=== PATIENT | female | born 1975 | race Hispanic/Latino ===

== ENCOUNTER 2018-05-06 14:51 | Inpatient (IN) | payer BC ==
[2018-05-06] MEDS ORDERED: ceFAZolin IV 1 gm in Dextrose 2 GM/100 ML BAG IVPB ONE (15:02)
[2018-05-06] MEDS ORDERED: Bupivacaine HCl 0.5% PF (30 ml) Inj ONE (15:02)
[2018-05-06] MEDS ORDERED: Midazolam 2 MG/2 ML VIAL ONE (15:05)
[2018-05-06] MEDS ORDERED: Etomidate 20 mg/10ml Inj IV ONE (15:08)
[2018-05-06] MEDS ORDERED: Phenylephrine 10 mg/ml Inj ONE (15:08)
[2018-05-06] MEDS ORDERED: ePHEDrine 50 mg/ml Inj ONE (15:08)
[2018-05-06] MEDS ORDERED: Succinylcholine Chloride 20 mg/ml Syr (5 ml) IV ONE (15:08)
[2018-05-06] MEDS ORDERED: Rocuronium 10 mg/ml (5 ml) ONE ×3 (15:09→17:16)
[2018-05-06] MEDS ORDERED: Lidocaine 4% (Laryng-O-Jet) Kit MM ONE (15:16)
[2018-05-06] MEDS ORDERED: Bupivacaine 0.25% 20 ML INJ IJ ONE (17:05)
[2018-05-06] MEDS ORDERED: Neostigmine Methylsulfate 3mg/3ml Syringe IV ONE (19:22)
[2018-05-06 20:22] VITALS: BMI 29.7
[2018-05-06] MEDS ORDERED: DiphenhydrAMINE 50 mg/ml Inj IVP PRN (20:29)
[2018-05-06] MEDS ORDERED: DiphenhydrAMINE 50 mg/ml Inj ONE (20:40)
[2018-05-06] MEDS: Lactated Ringer's 1,000 ML IV SCH (22:00)
[2018-05-07] MEDS: Lactated Ringer's 1,000 ML IV SCH (06:22)
--- NOTE | 2018-05-07 11:27 | PCM.SURG1 ---
Surgeon's Initial Post Op Note - Surgeon's Notes Surgeon: prabhakar ortiz raccuia Supervisor [employer]: susi Type of Anesthesia: General Endo Anesthesia Administered By: donavon Pre-Operative Diagnosis: acute abdomino pelvic pain rule out hernia Operative Findings: bilateral hernias , pelvic adhesions , adenomyosis endometriosis, Post-Operative Diagnosis: incarcerated inguinal hernia Operation Performed: bilateral hernia repair, lysis of adhesions, enterolysis, left ureterolysis, adenomyomectomy , appendectomy Specimen/Specimens Removed: multiple sent to pathology Estimated Blood Loss: EBL {In ML}: 10 Drains Used: No Drains Post-Op Condition: Good Date of Surgery/Procedure: 05/06/18 Time of Surgery/Procedure: 17:00
--- NOTE | 2018-05-07 11:46 | CP.PCM.HP ---
History of Present Illness - History of Present Illness History of Present Illness: 43 yo presents to the er with acute abdominal pain nausea and vomiting x24 hours . the patient has a long history of prior surgeries x5 and multiple evaluations wit imaging.Abdominal pain is acute both lowe abdomen and umbelical and periumbilical radiating to legs and flank Present on Admission - Present on Admission Any Indicators Present on Admission: No Review of Systems - Gastrointestinal Gastrointestinal: Abdominal Pain, Bloating, Nausea, Vomiting - Reproductive: Female Reproductive:Female: Dysmenorrhea Past Patient History - Infectious Disease Hx of Infectious Diseases: None - Tetanus Immunizations Tetanus Immunization: Unknown - Past Medical History & Family History Past Medical History?: No - Past Social History Smoking Status: Never Smoked - ENDOCRINE/METABOLIC Other/Comment: Hashimotos - GENITOURINARY/GYNECOLOGICAL Hx Reproductive Disorders: Yes (endometriosis) Other/Comment: PCOS,endometriosis - PSYCHIATRIC Hx Emotional Abuse: No Hx Physical Abuse: No Hx Substance Use: No - SURGICAL HISTORY Hx Tubal Ligation: Yes (left ovary) Other/Comment: multiple laparoscopies for endometriosis Meds Allergies/Adverse Reactions: Allergies Allergy/AdvReac Type Severity Reaction Status Date / Time gluten Allergy VOMITING Verified 05/06/18 10:16 lactase [From Dairy Aid] Allergy VOMITING Verified 05/06/18 10:16 shellfish derived Allergy ANAPHYLAXIS Verified 05/06/18 10:16 soy Allergy VOMITING Verified 05/06/18 10:16 paper tape Allergy URTICARIA Uncoded 05/06/18 10:16 Physical Exam - GI/Abdominal Exam GI & Abdominal Exam: Distended, Firm, Guarding, Rebound, Tenderness - Exam Bimanual exam: Uterine Tenderness Results - Vital Signs Recent Vital Signs: Last Vital Signs Temp 97.3 F L 05/07/18 07:39 Pulse 86 05/07/18 07:39 Resp 18 05/07/18 07:39 BP 105/68 05/07/18 07:39 Pulse Ox 96 05/07/18 07:39 Assessment & Plan - Assessment and Plan (Free Text) Assessment: acute abdominal pain , hx of hernia rule out incarcerated hernia , Plan: emergency diagnostic laparoscopy - Date & Time Date: 05/06/18 Time: 13:00
--- NOTE | 2018-05-07 11:55 | CP.PCM.PN ---
Subjective - Date & Time of Evaluation Date of Evaluation: 05/07/18 Time of Evaluation: 11:51 - Subjective Subjective: patient still in pain post op extensive surgery yesterday pt difficulty getting out of bed and ambulate Objective - Vital Signs/Intake and Output Vital Signs (last 24 hours): Temp Pulse Resp BP Pulse Ox 97.3 F L 86 18 105/68 96 05/07/18 07:39 05/07/18 07:39 05/07/18 07:39 05/07/18 07:39 05/07/18 07:39 Intake and Output: 05/07/18 05/07/18 06:59 18:59 Intake Total 1370 Output Total 1100 Balance 270 - Medications Medications: Current Medications Acetaminophen (Tylenol 325mg Tab) 650 mg PO Q6 PRN PRN Reason: Pain, Mild (1-3) Diphenhydramine HCl (Benadryl) 25 mg IVP Q6 PRN PRN Reason: Itching / Pruritus Stop: 05/07/18 23:59 Docusate Sodium (Colace) 100 mg PO TID [facility] Lactated Ringer's (Lactated Ringer's) 1,000 mls @ 125 mls/hr IV .[facility]H [facility] Last Admin: 05/07/18 06:22 Dose: 125 mls/hr Ketorolac Tromethamine (Toradol) 30 mg IVP Q6 [facility] Last Admin: 05/07/18 11:49 Dose: 30 mg Oxycodone/Acetaminophen (Percocet 5/325 Mg Tab) 2 tab PO Q4H PRN PRN Reason: Pain, severe (8-10) Stop: 05/10/18 11:36 - GI/Abdominal Exam GI & Abdominal Exam: Distended, Hypoactive Bowel Sounds Assessment and Plan - Assessment and Plan (Free Text) Assessment: pod day 1 still problems with pain control Plan: discharge in am
[2018-05-07] MEDS: DiphenhydrAMINE 50 mg/ml Inj IVP PRN ×2 (15:57→22:50)
[2018-05-07] MEDS: Oxycodone/Acetaminophen 5/325 mg Tab PO PRN ×3 (15:57→22:49)
[2018-05-08] MEDS: DiphenhydrAMINE 50 mg/ml Inj IVP PRN ×2 (03:23→23:25)
[2018-05-08] MEDS: Oxycodone/Acetaminophen 5/325 mg Tab PO PRN ×3 (09:38→17:46)
[2018-05-08] MEDS: Enoxaparin 30 mg Syringe SC SCH (18:36)
--- NOTE | 2018-05-08 19:13 | CP.PCM.PN ---
Subjective - Date & Time of Evaluation Date of Evaluation: 05/08/18 Time of Evaluation: 12:00 - Subjective Subjective: PATIENT STILL WITH DIFFICULTY AMBULATING . HAVING SOME DIFFICULTIES BREATHING ON A FEW OCCASIONS WITH LOW SATURATIONS Objective - Vital Signs/Intake and Output Vital Signs (last 24 hours): Temp Pulse Resp BP Pulse Ox 97.5 F L 90 20 132/88 97 05/08/18 16:00 05/08/18 16:00 05/08/18 16:00 05/08/18 16:00 05/08/18 16:00 - Medications Medications: Current Medications Acetaminophen (Tylenol 325mg Tab) 650 mg PO Q6H [facility] Last Admin: 05/08/18 15:00 Dose: Not Given Diphenhydramine HCl (Benadryl) 25 mg IVP Q6 PRN PRN Reason: Itching / Pruritus Last Admin: 05/08/18 03:23 Dose: 25 mg Docusate Sodium (Colace) 100 mg PO TID [facility] Last Admin: 05/08/18 18:15 Dose: 100 mg Enoxaparin Sodium (Lovenox) 30 mg SC DAILY [facility] Last Admin: 05/08/18 18:36 Dose: 30 mg Ketorolac Tromethamine (Toradol) 30 mg IVP Q6 [facility] Last Admin: 05/08/18 18:14 Dose: 30 mg Oxycodone/Acetaminophen (Percocet 5/325 Mg Tab) 2 tab PO Q4H PRN PRN Reason: Pain, severe (8-10) Stop: 05/10/18 11:36 Last Admin: 05/08/18 17:46 Dose: 1 tab Assessment and Plan - Assessment and Plan (Free Text) Assessment: STILL RECOVERING BREATHING PROBLEMS LOW SATURATIONS Plan: CONTINUE FOLLOWING FOR OBSERVATION IF OK HOME IN AM
[2018-05-09] MEDS: Oxycodone/Acetaminophen 5/325 mg Tab PO PRN ×2 (03:15→08:02)
[2018-05-09 08:10] VITALS: BP 108/66; PULSE 74; RESP 18; TEMP 97.1; O2SAT 97
[2018-05-09] MEDS: Enoxaparin 30 mg Syringe SC SCH (10:19)
--- NOTE | 2018-05-31 18:10 | DS ---
Copied To: Jonnathan Leigh MD Attending MD: Jonnathan Leigh MD HOSPITAL COURSE: The patient is a 43-year-old female who was urgently admitted for emergency surgery on 05/06/2018. She underwent extensive surgery for incarcerated hernia repair as well as pelvic adhesions and endometriosis. Postoperatively, she was admitted to the floor. She experienced severe issues with pain control as well as nausea and difficulty ambulating and difficulty eating. On postop day #1, the symptoms were still persistent. Patient had difficulty getting out of bed and also respiratory issues. The hospital course was characterized by a slow advancement of diet and resumption of bowel sounds. She was able to ambulate with nursing clerk, but with some difficulty and also difficulty urination. On postop day 3, finally the patient was able to eat properly and void properly and pain control was much better and she was discharged on 05/09/2018 with instruction to follow up with Dr. Leigh in two weeks and Dr. Bowman in two weeks as well and she was given tramadol for pain. Jonnathan Leigh MD [facility]
--- NOTE | 2018-06-01 07:01 | OP ---
Copied To: Jonnathan Leigh MD Attending MD: Jonnathan Leigh MD PROCEDURE DATE: 05/06/2018 SURGEON: Jonnathan Leigh MD CLIP ON SUNGLASSES ASSEMBLER: Clive Vazquez MD from General Surgery. PREOPERATIVE DIAGNOSES: Abdominal pain, pelvic pain, rule out incarcerated hernia. POSTOPERATIVE DIAGNOSES: Incarcerated inguinal hernia, severe pelvic adhesions, pelvic endometriosis and adenomyosis. PROCEDURES PERFORMED: Emergency laparoscopy followed by repair of inguinal hernia, which was separately performed by Dr. Bowman who will dictate the procedure separately. Operative robotic da Wojciech laparoscopy, extensive lysis of adhesions, excision of pelvic endometriosis, bilateral ureterolysis, adenomyomectomy, cystoscopy with bilateral urethral catheterization, and injection of dye. COMPLICATIONS: None. ESTIMATED BLOOD LOSS: Minimal. ANESTHESIA: General endotracheal. SAMPLES: Multiple samples sent to Pathology. INDICATIONS FOR THE PROCEDURE: The patient is a 43-year-old with a long history of pelvic pain with bouts of acute pain in multiple occasions and multiple prior emergency room visits. The patient was on multiple medications for pain. She presented to the emergency room on 05/06/2018 at [facility] with severe abdominal pain, getting worse. An exam by both myself and General Surgery revealed potential presence of an inguinal hernia as well as an acute abdomen. Because of the OR was closed at [place], she was urgently transferred to [facility] for emergency surgery. Prior to the surgery, the patient signed the consent and was taken to the OR. DESCRIPTION OF THE PROCEDURE: After adequate anesthesia was obtained, the diagnostic laparoscopy was performed by Dr. Bowman who identified immediately the presence of the hernia and proceeded with the repair. He will dictate that part separately. At this point, after his procedure was done, the pelvis appeared to have very significant adhesions. The da Wojciech robot was docked after placing the ports under direct visualization, and the procedure was started. Multiple adhesions were taken down. The left ovary was surgically absent, both ureters appeared to be slightly dilated, therefore a cystoscopy was performed and IC green dye was injected in both ureters under direct visualization after placing a stent. At this point, the ureters were visualized, the left ureter was dissected off, it was encased into endometriosis, which was excised and sent to Pathology and ureterolysis was done on the left hand side. The uterus was encased with adhesions and invasive endometriosis, an incision was made in the uterus and black cystic adenomyosis was excised and the defect was then repaired utilizing an interlocking suture of 2-0 V-Loc. Attention was on the right hand side where after dissecting away from the pelvic side wall, the right ureter was identified, dissected off and the large area of endometriosis was excised. There was also endometriosis on the rectum. At this point, we checked for hemostasis, it appeared to be excellent. Dr. Vazquez from General Surgery proceeded with an appendectomy as the appendix did not appear to be normal. At this point, it was checked for hemostasis, appeared to be excellent. The instruments were removed and an additional umbilical hernia was also repaired by General Surgery who will dictate that separately. At the end of the procedure, all tapes and instrument counts were correct. The patient tolerated the procedure well, was taken to the recovery room in excellent condition. Jonnathan Leigh MD [facility]
== END 2018-05-09 12:08 | disposition home or self-care (01) | DRG 742 ==
LOC: C.OPSURG 14:51 → C.4M 20:47
PROVIDERS: ADMIT Obstetrics & Gynecology Reproductive Endocrinology; ATTEND Obstetrics & Gynecology Reproductive Endocrinology
PROC: 0YUA4JZ Supplement Bilateral Inguinal Region with Synthetic Substitute, Percutaneous Endoscopic Approach (ICD-10-PCS; 2018-05-06)
PROC: 0WQF4ZZ Repair Abdominal Wall, Percutaneous Endoscopic Approach (ICD-10-PCS; 2018-05-06)
PROC: 0TN74ZZ Release Left Ureter, Percutaneous Endoscopic Approach (ICD-10-PCS; 2018-05-06)
PROC: 0TN64ZZ Release Right Ureter, Percutaneous Endoscopic Approach (ICD-10-PCS; 2018-05-06)
PROC: 0YUE4JZ Supplement Bilateral Femoral Region with Synthetic Substitute, Percutaneous Endoscopic Approach (ICD-10-PCS; 2018-05-06)
PROC: 0TJB8ZZ Inspection of Bladder, Via Natural or Artificial Opening Endoscopic (ICD-10-PCS; principal; 2018-05-06 14:00)
PROC: 0UB94ZZ Excision of Uterus, Percutaneous Endoscopic Approach (ICD-10-PCS; 2018-05-06 14:00)
PROC: 0DTJ4ZZ Resection of Appendix, Percutaneous Endoscopic Approach (ICD-10-PCS; 2018-05-06 14:00)
DX: N80.0 Endometriosis of uterus (principal); K40.30 Unilateral inguinal hernia, with obstruction, without gangrene, not specified as recurrent; K41.00 Bilateral femoral hernia, with obstruction, without gangrene, not specified as recurrent; K40.00 Bilateral inguinal hernia, with obstruction, without gangrene, not specified as recurrent; Z98.51 Tubal ligation status; N73.6 Female pelvic peritoneal adhesions (postinfective); E28.2 Polycystic ovarian syndrome; N80.3 Endometriosis of pelvic peritoneum; K42.9 Umbilical hernia without obstruction or gangrene